=== PATIENT | male | born 1990 | race Caucasian/White ===

== ENCOUNTER → 2020-12-09 08:52 | Outpatient (CLI) | payer OTHER, SELFPAY ==
[2020-12-09] MEDS: COVID-19 VACC, Ad26(JANSSEN)/PF 0.5 ML IM (08:59)
== END ==
PROVIDERS: Visit Provider Internal Medicine
DX: Z23 Encounter for immunization (principal)
CPT/HCPCS: 0031A; 91303

== ENCOUNTER 2020-12-20 20:42 | Emergency (ER) | payer OTHER, SELFPAY ==
[2020-12-20 20:43] VITALS: BMI 27.1
[2020-12-20 20:50] VITALS: BP 147/92; PULSE 100; RESP 16; TEMP 37; O2SAT 97
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
[2020-12-20] MEDS: TET,DIPH,PERTUSS(ACELL),VAC/PF 0.5 ML SYRINGE IM (21:15)
[2020-12-20] MEDS: BACITRACIN OINT 0.9 GM PCKT 1 APPLIC TOP (21:15)
[2020-12-20 21:39] VITALS: BP 165/103; PULSE 93; O2SAT 97
[2020-12-20 21:42] LABS: Alanine Aminotransferase 46 IU/L (<50)
[2020-12-20 23:14] LABS: HIV 1 & 2 Ab/Ag 4th Gen Combo NEGATIVE (NEGATIVE); Hep C Virus Ab w/Reflex Quant NEGATIVE s/c (NEGATIVE)
[2020-12-22 05:01] LABS: Hepatitis B Surf Ab Qualitativ Reactive (.)
== END 2020-12-20 21:40 | disposition home or self-care (01) ==
PROVIDERS: Emergency Provider Emergency Medicine
DX: S71.151A Open bite, right thigh, initial encounter (principal); Y04.1XXA Assault by human bite, initial encounter; Z23 Encounter for immunization; Y99.0 Civilian activity done for income or pay
CPT/HCPCS: 36415; 84460; 86706; 86803; 87389; 90471; 99283; 90715